=== PATIENT | male | born 1990 | race African-American/Black ===

== ENCOUNTER 2017-01-11 11:57 | Emergency (ER) | payer OTHER ==
--- NOTE | ~2017-01-11 | CR142 ---
[facility]. [facility] A Service of [facility] & [facility] RADIOLOGY TEXT RESULTS PATIENT: MARQUIS MCDOWELL LOCATION: SED : [birth year] UNIT #: [id number] AGE: [address]: Raine Webb APRN SEX: M ORDER DR: [id number] [place] [id number] E MR#: [id number] Acc #: [id number] NAME: MARQUIS MCDOWELL : 1990 SEX: M STUDY DATE/TIME: 01/11/2017 1229 UNIT: SED ROOM: STUDY DESCRIPTION: CR Hand Min 3 Views Rt Attending Physician: Raine Webb A.P.R.N. Ordering Physician: Raine Us A.P.R.N. Primary Care Physician: No Primary Care Physician MEDICAL IMAGING REPORT This report is preliminary unless electronic signature is present. EXAM Right hand 3 views 01/11/2017 1229 hours HISTORY 26-year-old with pain and swelling in the first and second fingers this morning. No known injury. COMPARISON None. FINDINGS AP, lateral and oblique views demonstrate no fracture, dislocation or foreign body. IMPRESSION No fracture, dislocation or foreign body. Dictated by... Liseth Marroquin M.D. THIS IS AN ELECTRONICALLY VERIFIED REPORT Liseth Marroquin M.D. at 01/11/2017 6:54 PM Marie TD: 01/11/2017 15:35 JOB #: [id number] MEDICAL IMAGING REPORT Page 1 of 1
[~2017-01-11 11:57] MED LIST: FLEXERIL PO; NO MEDICATIONS; ORUDIS75 M1 PO
== END 2017-01-11 13:09 | disposition home or self-care (01) ==
LOC: SED 11:57
DX: M79.641 Pain in right hand (principal); M79.89 Other specified soft tissue disorders; F17.210 Nicotine dependence, cigarettes, uncomplicated
CPT/HCPCS: 29280; 73130; 99283